=== PATIENT | female | born 1960 | race Caucasian/White ===

== ENCOUNTER → 2017-12-14 11:35 | Outpatient (CLI) | payer OTHER, SELFPAY ==
[2017-12-14 11:46] LABS: Bacteria 0 SEEN /hpf (None Seen); Mucous, Urine 0 SEEN /hpf (<or=2+); Red Blood Cells-Urine 0 SEEN /hpf (0-5)
[2017-12-14 15:50] LABS: Absolute Lymphocyte Count 2.25 X10^3/ul (0.83-4.51); Absolute Neutrophil Count 5.5 X10^3/uL (2.0-7.7); Basophil# 0.02 X10^3/uL; Basophil% 0.2 % (0-1); Eosinophil# 0.08 X10^3/uL; Hematocrit 44.4 % (37-47); Lymphocyte # 2.25 X10^3/ul (4.0); Lymphocyte % 26.7 % (19-41); Mean Corp Hgb Conc 33.8 g/gl (32-36); Mean Corpuscular Hgb 32.5 pg (27.0-32.0); Mean Corpuscular Volume 96.3 fL (81-99); Mean Platelet Vol. 9.3 fl (6.2-12.0); Monocyte# 0.54 X10^3/uL; Monocyte% 6.4 % (0-10); Neutrophil # 5.52 X10^3/uL (2.7-7.7); Neutrophil % 65.6 % (47-70); Platelet Count 318 K/mm3 (150-450); RBC Distribution Width CV 13.6 % (11.6-14.6); RBC Distribution Width SD 47.8 fl (35.1-43.9); Red Blood Count 4.61 M/mm3 (4.2-5.4); White Blood Count 8.4 K/mm3 (4.4-11.0)
[2017-12-14 15:55] LABS: Color, Urine Yellow (Yellow); Glucose, Dipstick Normal (Normal); Ketone-Dipstick Negative (Negative); Leukocyte Esterase-Dipstick Negative /ul (Negative); Nitrite-Dipstick Negative (Negative); Occult Blood-Urine Negative /ul (Negative); Protein-Dipstick Negative (Negative); Urine Bilirubin Dipstick Negative (Negative); Urine Clarity Clear (Clear); Urine Urobilinogen Normal (Normal); Urine pH 6.5 (5.0 - 8.0)
[2017-12-14 16:04] LABS: POSITIVE COUNT NO; POSITIVE DIFFERENTIAL NO; POSITIVE MORPHOLOGY NO
[2017-12-14 16:07] LABS: Squamous Epithelial Cells - UA 0-5 SEEN /hpf (5-10); White Blood Cells 0-5 SEEN /hpf (0-5)
[2017-12-14 16:13] LABS: ALB/GLOB Ratio 0.9 RATIO (0.9-2.4); AST(SGOT) 13 U/L (15-37); Alanine Aminotransfer ALT/SGPT 26 U/L (13-56); Albumin, Serum 3.7 g/dL (3.2-5.0); Alkaline Phosphatase 108 U/L (45-117); Anion Gap 8 (5-15); BUN 8 mg/dL (7-18); BUN/Creat Ratio 11.7 RATIO (10-20); Calcium,Total 9.3 mg/dL (8.5-10.1); Chloride 105 mmol/L (98-107); Creatinine, Serum 0.68 mg/dL (0.55-1.02); EST Glomerular Filtration Rate 94 mL/min (>60); Est Glom Filt Rate - Afr Amer 113 mL/min (>60); Globulin 4.1 g/dL (2.2-4.2); Glucose 108 mg/dL (74-106); Potassium 3.7 mmol/L (3.5-5.1); Protein, Total 7.8 g/dL (6.4-8.2); Sodium Level 138 mmol/L (136-145)
== END ==
PROVIDERS: Family Provider Family Medicine; PCP Family Medicine; Visit Provider Family Medicine
DX: I10 Essential (primary) hypertension (principal); R60.0 Localized edema
CPT/HCPCS: 36415; 80053; 81001; 84443; 85025

== ENCOUNTER → 2020-02-27 11:57 | Outpatient (CLI) | payer OTHER, SELFPAY ==
[2020-02-27 15:29] LABS: Absolute Lymphocyte Count 2.41 X10^3/uL (0.83-4.51); Absolute Neutrophil Count 6.2 X10^3/uL (2.0-7.7); Basophil# 0.06 X10^3/uL; Basophil% 0.6 % (0-1); Eosinophil# 0.09 X10^3/uL; Hematocrit 44.8 % (37-47); Hemoglobin 14.8 g/dL (12.0-15.0); Lymphocyte # 2.41 X10^3/ul (4.0); Lymphocyte % 25.7 % (19-41); Mean Corpuscular Hgb 32.3 pg (27.0-32.0); Mean Corpuscular Volume 97.8 fL (81-99); Mean Platelet Vol. 9.4 fl (6.2-12.0); Monocyte# 0.64 X10^3/uL; Monocyte% 6.8 % (0-10); NRBC Flagged by Analyzer 0 % (0-5); Neutrophil # 6.16 X10^3/uL (2.7-7.7); Neutrophil % 65.7 % (47-70); Platelet Count 327 K/mm3 (150-450); RBC Distribution Width CV 13.2 % (11.6-14.6); RBC Distribution Width SD 47.5 fl (35.1-43.9); Red Blood Count 4.58 M/mm3 (4.2-5.4); White Blood Count 9.4 K/mm3 (4.4-11.0)
[2020-02-27 15:52] LABS: ALB/GLOB Ratio 0.8 RATIO (0.9-2.4); AST(SGOT) 19 U/L (15-37); Alanine Aminotransfer ALT/SGPT 37 U/L (13-56); Albumin, Serum 3.4 g/dL (3.2-5.0); Alkaline Phosphatase 95 U/L (45-117); Anion Gap 8 (5-15); BUN 9 mg/dL (7-18); BUN/Creat Ratio 11.9 RATIO (10-20); Calcium,Total 9.3 mg/dL (8.5-10.1); Chloride 101 mmol/L (98-107); Creatinine, Serum 0.76 mg/dL (0.55-1.02); EST Glomerular Filtration Rate 83 mL/min (>60); Est Glom Filt Rate - Afr Amer 100 mL/min (>60); Free T3 2.9 pg/mL (2.18-3.98); Glucose 100 mg/dL (74-106); Lipase 87 U/L (73-393); Potassium 3.1 mmol/L (3.5-5.1); Protein, Total 7.4 g/dL (6.4-8.2); Sodium Level 139 mmol/L (136-145); T4 Free Direct 1.14 ng/dL (0.76-1.46); Thyroid Stim Hormone (TSH) 0.93 uIU/mL (0.358-3.74)
== END ==
PROVIDERS: PCP Family Medicine; Visit Provider Family Medicine
DX: R10.9 Unspecified abdominal pain (principal); R10.13 Epigastric pain; R14.0 Abdominal distension (gaseous)
CPT/HCPCS: 36415; 80053; 83690; 84439; 84443; 84481; 85025

== ENCOUNTER → 2020-03-21 07:13 | Outpatient (CLI) | payer OTHER, SELFPAY ==
--- NOTE | 2020-03-21 07:20 | CT_ITS ---
STUDY: CT ABDOMEN AND PELVIS WITH CONTRAST REASON FOR EXAM: Female, 59 years old. AB PAIN AND BLOATING X 5 MONTHS. PRIOR APPY,GB, CLARA/BSO RADIATION DOSAGE (If Supplied By Facility): CTDIvol = ( 18.20 ) mGy, DLP = ( 913.17 ) mGycm TECHNIQUE: Transaxial images were obtained from the dome of the diaphragm to the symphysis pubis with oral contrast. Oral and amp; IV Readi-CAT and amp; 100mL Isovue-370 was administered. Sagittal and coronal images were reconstructed. Individualized dose optimization techniques were used for this CT. COMPARISON: None. FINDINGS: Patchy area of increased density in the lingular segment of the left upper lobe. This may represent either a focal area of atelectasis or infiltrate. Calcified granulomas in the posterior medial segment of the right lower lobe as well as bullous formation in the posterior medial segment of the right lower lobe. The visualized portions of the heart are within normal limits. There is decreased attenuation of the liver consistent with steatosis. Multiple scattered hepatic cysts throughout both lobes of the liver. The largest cyst is in the inferior medial portion of the right lobe of the liver and measures 2.8 cm x 2.2 cm. There are surgical clips in the gallbladder fossa consistent with a prior cholecystectomy. Normal spleen. Normal pancreas. Normal bilateral adrenal glands. Normal right kidney. Normal left kidney. Normal visualized stomach. Normal small intestine. Normal colon. The patient is status post appendectomy. There is diffuse atherosclerotic calcification of the abdominal aorta and its major visceral branches, without a demonstrated aneurysm. Normal inferior vena cava. Normal retroperitoneum. Normal urinary bladder. There is absence of the uterus consistent with a prior hysterectomy. There is a small umbilical hernia containing fat. Normal osseous structures. CT/Abdomen/Pelvis WITH Contrast IMPRESSION: Fatty infiltration of the liver. Multiple hepatic cysts. Atelectasis/infiltrate in the lingular segment of the left upper lobe. Scarring and bullous changes in the right lower lobe. Electronically Signed: George Bey, at 8:58 EDT , Service support ,
== END ==
PROVIDERS: PCP Family Medicine; Referring Provider Family Medicine; Visit Provider Family Medicine
DX: R10.13 Epigastric pain (principal); R10.12 Left upper quadrant pain; R14.0 Abdominal distension (gaseous)
CPT/HCPCS: 74177; Q9967

== ENCOUNTER 2021-04-16 18:57 | Emergency (ER) | payer OTHER, SELFPAY ==
[2021-04-16 18:58] VITALS: BP 193/123; PULSE 97; RESP 16; TEMP 36.4; O2SAT 100; BMI 27.3
[2021-04-16 19:47] VITALS: BP 193/120; PULSE 94; RESP 18; O2SAT 98
--- NOTE | 2021-04-16 20:24 | EX.ED.DYSGE1 ---
HPI History of Present Illness Chief Complaint: Other, Pain/Inj Informant: patient Narrative Narrative: Nontraumatic right-sided neck pain rating up to her right side head after leaving [facility] at 10 AM this morning from [place]. Denies pain down the right arm. Ibuprofen taken. Blood pressure is elevated she takes 50 mg of hydrochlorothiazide daily. Denies chest pains or shortness of breath. Denies previous similar symptoms in the past. No history of osteopenia or osteoporosis. Prior similar symptoms: No PFSH PFSH Medical History Hypertension Home Medications alprazolam 0.25 mg PO QHS 04/16/21 [History Last Taken Unknown] atorvastatin 10 mg PO DAILY 04/16/21 [History Last Taken Unknown] diazepam [Valium] 2 mg PO BID PRN #10 tab 04/16/21 [Rx Last Taken Unknown] hydrochlorothiazide 50 mg PO DAILY 04/16/21 [History Last Taken Unknown] Allergy/AdvReac Type Severity Reaction Status Date / Time aspirin Allergy Vomiting Verified 04/16/21 19:00 Surgical History History of appendectomy History of cholecystectomy History of hand surgery History of shoulder surgery History of total hysterectomy Social History Smoking Status: Current every day smoker tobacco type: cigarettes ROS ROS ED Constitutional Constitutional ED: Denies chills, fever(s) or sweats Eyes Eyes: Denies change in vision ENT ENT ED: Denies dysphagia or sore throat Cardiovascular Cardiovascular: Denies chest pain, leg edema, palpitations or racing heartbeat Respiratory/Chest Respiratory/Chest: Denies cough, dyspnea or dyspnea on exertion Gastrointestinal Gastrointestinal: Denies abdominal pain, diarrhea, nausea or vomiting Genitourinary Genitourinary ED: Denies dysuria, hematuria or urinary frequency Musculoskeletal Musculoskeletal: Reports neck pain; Denies back pain or extremity pain Integumentary Denies rash or wounds Neurologic Neurologic: Reports headache(s); Denies paresthesias or weakness EXAM Physical Exam Const Vital Signs: 04/16/21 18:58 04/16/21 19:47 04/16/21 19:49 Temperature 97.5 F L Temperature Source Temporal Pulse Rate 97 94 Respiratory Rate 16 18 Respiratory Effort Normal Non-Labored Respiratory Pattern Normal Blood Pressure 193/123 H 193/120 H Blood Pressure Mean 146 144 Pulse Ox 100 98 Oxygen Delivery Method Room Air Room Air 04/16/21 20:31 Temperature Temperature Source Pulse Rate 86 Respiratory Rate 16 Respiratory Effort Respiratory Pattern Blood Pressure 139/95 H Blood Pressure Mean Pulse Ox 96 Oxygen Delivery Method Positive well nourished and well developed General Appearance ED: well developed and NAD HEENT Reports moist mucous membranes normocephalic and atraumatic Eyes PERRL, EOMs intact bilaterally and conjunctivae normal General Eye ED: Yes normal appearance of both eyes Neck no lymphadenopathy and supple Neck Narrative: Tenderness right paracervical with somatic dysfunction with upper cervical rotated side bent right. No meningismus. General: tenderness Chest Wall Chest: Negative for tenderness Resp normal respiratory effort and normal air movement Effort and Inspection: symmetric chest movement; Negative for respiratory distress Cardio regular rate, regular rhythm and no murmurs Peripheral Pulses: pulses 2+ throughout GI normal to inspection, nondistended, normoactive bowel sounds and non-tender Palpation: Negative for guarding or rebound tenderness present Back/Spine no CVA tenderness and no thoracic nor lumbar tenderness Extremity normal to inspection General Extremety ED: Negative for edema or tenderness General Extremity: Negative for edema Neuro oriented x3, CN's II-XII intact bilaterally and no sensory deficits noted Sensorium / Orientation: awake and alert Skin no rashes or lesions noted and no wounds MDM MDM MDM Narrative Medical decision making narrative: Patient exam concerns for somatic dysfunction right cervical spine causing tension headache on the right side. Afebrile no meningismus. Blood pressure is elevated 193/120 on arrival likely secondary additional pain. Discussed osteopathic manipulation with the patient who agreed. Performed facilitated positional relief of the right cervical spine improved movement and tension. Blood pressure also improved 136/95 after manipulation. Neck pain improved patient still has slight headache. Discussed avoiding NSAIDs at this time due to causing elevated blood pressure. She'll use Tylenol. She started on 2 mg of Valium to use as needed to help additional muscle relaxation control. She will hold her Xanax for which she takes as needed at night while taking Valium. She will follow-up with her PCP. All questions were answered. Discharge Plan Triage Chief Complaint: Other, Pain/Inj ED Provider: Alex Chi Dx/Rx/DC Orders Clinical Impression: Cervical somatic dysfunction, Acute tension-type headache, Elevated blood pressure reading in office with diagnosis of hypertension Instructions: Controlling High Blood Pressure, ED Headache, Tension, ED Neck Pain Prescriptions: New diazepam [Valium] 2 mg tablet 2 mg PO BID PRN (Reason: muscle spasm) Qty: 10 RF: 0 No Action atorvastatin 10 mg tablet 10 mg PO DAILY RF: 0 hydrochlorothiazide 50 mg tablet 50 mg PO DAILY RF: 0 alprazolam 0.25 mg tablet 0.25 mg PO QHS RF: 0 Primary Care Provider: Carine Terrazas Referrals: Carine Terrazas DO [Primary Care Provider] - 3-5 Days if not improving Activity Restrictions/Additional Instructions: Use Tylenol 1 g every 6 hours as needed. Avoid ibuprofen due to possibly causing elevated blood pressure. Status post manipulation cervical spine with improvement of blood pressure. Use Valium as prescribed. Do not use your alprazolam while using Valium. Follow-up with your doctor. Disposition Disposition: Home, Self Care Discharge Date/Time: 04/16/21 20:32
[2021-04-16] MEDS: diazePAM 2 MG Tablet PO (20:29)
[2021-04-16 20:31] VITALS: BP 139/95; PULSE 86; RESP 16; O2SAT 96
== END 2021-04-16 20:32 | disposition home or self-care (01) ==
PROVIDERS: Emergency Provider Emergency Medicine; PCP Family Medicine
DX: M99.01 Segmental and somatic dysfunction of cervical region (principal); G44.209 Tension-type headache, unspecified, not intractable; I10 Essential (primary) hypertension; F17.210 Nicotine dependence, cigarettes, uncomplicated; Z79.899 Other long term (current) drug therapy
CPT/HCPCS: 99283

== ENCOUNTER → 2022-12-06 | Outpatient (CLI) | payer OTHER, SELFPAY ==
--- NOTE | 2022-12-06 13:22 | STEWCON_ITS ---
Reason For Study: Dyspnea Stress Results Protocol: Lars Protocol WITH DEFINITY Maximum Predicted HR: 157 bpm Target HR: 133 bpm % Maximum Predicted HR: 90 % DurationHeart Rate Stage (mm:ss) (bpm) BP Comment Baseline 70 138/74No Chest Pain; Definity 3 ML Given Lars Protocol Stage I 3:00 115 146/70No Chest Pain; Mild Dyspnea Lars Protocol Stage II 3:00 129 172/74No Chest Pain; Moderate Dyspnea Lars Protocol Stage III 0:30 142 / No Chest Pain; Moderate Dyspnea Recovery 85 122/78No Chest Pain; No Dyspnea Stress Duration: 6:30 mm:ss Maximum Stress HR: 142 bpm METS: 8 Baseline Echocardiogram Findings Stress Echo Wall motion Data Resting WM Intermediate WM Stress WM Time Measurements MV dec time: 0.20 sec Doppler Measurements & Calculations MV E max olu: 75.4 cm/sec Lat Peak E' Olu: 9.8 cm/sec Med Peak E' Olu: 7.4 cm/sec MV A max olu: 80.4 cm/sec E/E' lat: 7.7 E/E' med: 10.2 MV E/A: 0.94 MV dec slope: 364.2 cm/sec2 TR max olu: 277.6 cm/sec TR max P.8 mmHg ECHO/Stress Test Echo W/Contrast Interpretation Summary Stress echocardiogram. 62-year-old lady with a history of shortness of breath. Resting EKG demonstrates normal sinus rhythm with a rate of 71 bpm normal inter vals are noted resting blood pressure is 138/74 mmHg. The patient exercised according to regul ar Lars protocol for a total duration of 6 minutes and 30 seconds. The maximum heart rate attained w as 144 bpm which was 91% of max impacted heart rate the maximum workload was 8.5 metabolic equivalen ts. At rest there were no ST or T wave changes noted suggest ischemia and at peak exercise there was less than 1 mm of horizontal and upsloping ST changes noted we did not meet the criteria for isch emia. The patient did experience dyspnea on exertion. The peak blood pressure was 172/74 mmHg which w as a good blood pressure response to exercise rate-pressure product was 22,188. Stress echocardiogram. The resting and stress echocardiographic images were obt ained with the resting images demonstrating an ejection fraction of 65% with Definity enhancem ent. At peak exercise there was near chamber obliteration noted with no wall motion abnormalities pre sent. No evidence of ischemia was present. Conclusion: Normal exercise stress echo with no EKG criteria for ischemia at a moderate wor kload Normal resting echocardiographic images with normal pulmonary pressures of 34 m mHg. No ischemia present. Ordering Physician: Raul Swenson V Referring Physician: Raul Swenson V Performed By: Inés Recio, ANGÉLICA, RVT
== END | disposition home or self-care (01) ==
PROVIDERS: Referring Provider Internal Medicine Pulmonary Disease; Visit Provider Internal Medicine Pulmonary Disease
DX: R06.00 Dyspnea, unspecified (principal)
CPT/HCPCS: 93017; 93350; Q9957; C8928

== ENCOUNTER 2023-11-19 05:24 | Emergency (ER) | payer OTHER, SELFPAY ==
[2023-11-19 05:26] VITALS: BP 217/99; PULSE 98; RESP 20; TEMP 36.7; O2SAT 97; BMI 29.8
--- NOTE | 2023-11-19 05:26 | EKG12_ITS ---
Test Reason : PALPS Blood Pressure : / mmHG Vent. Rate : 085 BPM Atrial Rate : 085 BPM P-R Int : 124 ms QRS Dur : 090 ms QT Int : 366 ms P-R-T Axes : 025 057 054 degrees QTc Int : 435 ms Normal sinus rhythm Nonspecific ST abnormality Abnormal ECG Confirmed by SHARLA BHATT, ESTEVAN ([id number]), wood flooring specialist CHETNA OSBORNE ([id number]) on 11/21/2023 11:46:28 AM Referred By: COLBY Confirmed By:ESTEVAN MAGDALENO MD
--- NOTE | 2023-11-19 05:27 | EX.ED.DYSGE1 ---
HPI History of Present Illness Chief Complaint: Palpitations [facility] Medical History Hypertension Home Medications alprazolam 0.25 mg tablet 0.25 mg PO QHS 04/16/21 [History Last Taken Unknown] atorvastatin 10 mg tablet 10 mg PO DAILY 04/16/21 [History Last Taken Unknown] Allergy/AdvReac Type Severity Reaction Status Date / Time aspirin Allergy Vomiting Verified 04/16/21 19:00 Surgical History History of appendectomy History of cholecystectomy History of hand surgery History of shoulder surgery History of total hysterectomy Social History Smoking Status: Current every day smoker tobacco type: e-cigarettes EXAM Physical Exam Const Vital Signs: 11/19/23 05:26 11/19/23 05:29 11/19/23 05:31 Temperature 98.1 F 98.1 F Temperature Source Oral Oral Pulse Rate 98 90 Respiratory Rate 20 H 19 H Respiratory Effort Normal Blood Pressure 217/99 H 217/99 H Blood Pressure Mean 138 138 Pulse Ox 97 97 Oxygen Delivery Method Room Air Room Air 11/19/23 06:15 Temperature Temperature Source Pulse Rate 85 Respiratory Rate 13 Respiratory Effort Blood Pressure 183/90 H Blood Pressure Mean 121 Pulse Ox 97 Oxygen Delivery Method Room Air MDM MDM MDM Narrative Medical decision making narrative: HISTORY OF PRESENT ILLNESS: 63-year-old female presents with concern for palpitations. She states 2 weeks of watery diarrhea several episodes per day. Recent travel, antibiotics or hospitalization. Denies chest pain or shortness of breath. Notes abdominal pain just prior to going to the bathroom. The patient denies recent surgery in the last 4 weeks or immobilization in the last 3 days, denies previous diagnosis of DVT or PE, hemoptysis, unilateral leg swelling or malignancy with treatment the last 6 months or palliative. No estrogen use noted. REVIEW OF SYSTEMS: Pertinent positives: Palpitations, diarrhea, abdominal pain Pertinent negatives: Shortness of breath, chest pain, urinary complaints PHYSICAL EXAM: Nursing triage notes reviewed, Vital signs reviewed Constitutional: please see mdm HENT: MMM Eyes: Pupils equal round and reactive to light, Extraocular muscles intact Neck: No stridor, no JVD, full neck ROM Lungs: Clear to auscultation, No wheezing or rales. No increased work of breathing, no conversational dyspnea, no accessory muscle use, no nasal flaring. No respiratory distress noted Heart: Regular rate and rhythm, No murmurs, No rubs and No gallops, 2+ distal pulses (radial, femoral, posterior tibial) in all extremities Abdomen: Soft, there is no tenderness, rigidity, rebound or guarding, no obvious peritoneal signs, no palpable pulsatile abdominal masses, no auscultated abdominal bruit : No CVAT Extremities: No edema Neuro: No focal neurological deficits, cranial nerves II through XII intact, 5/5 strength in all extremities. Intact sensation to light touch in all extremities, 2+ reflexes bilateral patella tendons. Normal gait. No ataxia. Skin: No rash or lesions noted MEDICAL DECISION MAKING: Chief Complaint: Palpitations External records reviewed: Reviewed stress echocardiogram from November 2022: Ejection fraction 65% this time, the resting and stress echocardiographic images showed no wall motion abnormalities, no evidence of ischemia Factors affecting care: n hypertension, hyperlipidemia, emphysema Social determinants of health: Former smoker History obtained from others: none Consults: none MDM Narrative: Patient was initially hypertensive otherwise afebrile he was nontoxic-appearing. No focal cardiopulmonary normalities. Abdomen soft, no appreciable tenderness noted. I considered the following differential diagnosis: Dehydration, electrolyte disturbance, GEOVANNI, arrhythmia, myocardial ischemia, invasive diarrhea I obtained a broad lab workup to further elucidate the etiology patient complaint. I rehydrated the patient 1 L normal saline. ALL IMAGES (IF OBTAINED) HAVE BEEN PERSONALLY REVIEWED AND INTERPRETED BY MYSELF. EKG with normal sinus rhythm, normal axis, no intervals, no STEMI, no signs of arrhythmia, WW, ARVD or Brugada syndrome CBC without leukocytosis, severe anemia, no thrombocytopenia. CMP without evidence of acute kidney injury, significant electrolyte abnormality, anion gap, no evidence hepatobiliary pathology. Lipase is wnl indicating no pancreatic inflammation. Repeat abdominal exam remained benign. The synthesis of the patient's history, physical exam, labs suggest no acute life-threatening etiology. While considered acute intra-abdominal pathology such as perforation or obstruction the patient's exam was not consistent with this. No indication for advanced imaging at this time. Patient's palpitations were not present at time of presentation and heart rate was within normal limits her EKG showed no evidence of arrhythmia. She had no chest pain to suggest ACS, no signs of arrhythmia or electrolyte disturbances. Patient is appropriate for discharge home and close PCP follow-up. Stool pathogens were ordered if patient provide sample prior to discharge we will have her follow with her primary care physician to assess results. The patient and/or family, caregivers express understanding. The patient and/or family, caregivers agrees with the plan. Shared decision making: I will have a discussion with the patient and or visitors regarding risk/benefits of further testing or admission. They will be made aware of of the risk/benefits inherent in this decision they will be given the opportunity to voice understanding. Total critical care time today provided was at least 0 minutes. This excludes separately billable procedures. Critical care time (if documented) is secondary to the patient having high probability of clinically significant/life threatening deterioration in the patient's condition which required my urgent intervention. Impression: 1. Dehydration 2. Diarrhea 3. Palpitations Dispo: Discharge This note was generated with [employer] dictation software. It may contain incorrect words, spelling, and punctuation that were not noted in review of the chart prior to signing. Lab Data Labs: Laboratory Results - last 24 hr 11/19/23 05:31 WBC 6.8 RBC 4.13 L Hgb 13.0 Hct 38.2 MCV 92.5 MCH 31.5 MCHC 34.0 RDW Std Deviation 43.5 RDW Coeff of Bar 12.8 Plt Count 267 MPV 8.5 Immature Gran % (Auto) 0.400 Neut % (Auto) 60.4 Lymph % (Auto) 26.4 [place]oshone % (Auto) 10.8 H Eos % (Auto) 1.6 Baso % (Auto) 0.4 Absolute Neuts (auto) 4.1 Absolute Lymphs (auto) 1.79 Nucleated RBC % 0 Sodium 141 Potassium 3.8 Chloride 109 H Carbon Dioxide 27.0 Anion Gap 5 BUN 11 Creatinine 0.81 Estim Creat Clear Calc 68.72 Est GFR (MDRD) Af Amer 91 Est GFR (MDRD) Non-Af 76 BUN/Creatinine Ratio 13.6 Glucose 137 H Calcium 9.2 Total Bilirubin 0.30 AST 30 ALT 52 Alkaline Phosphatase 102 Total Protein 7.1 Albumin 3.2 Globulin 3.9 Albumin/Globulin Ratio 0.8 L Lipase 23 Discharge Plan Triage Chief Complaint: Palpitations ED Provider: Yury Ortiz Dx/Rx/DC Orders Instructions: ED Diarrhea, Unknown Cause, ED Palpitations Prescriptions: No Action atorvastatin 10 mg tablet 10 mg PO DAILY alprazolam 0.25 mg tablet 0.25 mg PO QHS Patient Comments: TAKE 1 TABLET BY MOUTH TWICE DAILY NEEDED Primary Care Provider: Evy Jacob Referrals: Evy Jacob MD [Primary Care Provider] - Activity Restrictions/Additional Instructions: Thank you for trusting us with your care today! Your kidneys, electrolytes and other studies were reassuring. Please drink plenty of fluids. Recommend electrolyte containing solution such as Pedialyte, body armor or Gatorade. Please drink approximately 8 ounces of fluid for every loose or diarrheal bowel movement. If you are able to provide a stool sample please await results via online medical record. Please take Tylenol (2 pills, 650 mg), ibuprofen (2 pills, 400 mg) every 6 hours as needed for pain and fever control. Please return to the emergency department if your symptoms change or worsen. Please follow with your primary care physician for further outpatient evaluation and management. Disposition Disposition: Home, Self Care
[2023-11-19 05:29] VITALS: BP 217/99; PULSE 90; RESP 19; TEMP 36.7; O2SAT 97
[2023-11-19 05:36] LABS: Absolute Lymphocyte Count 1.79 X10^3/uL (0.83-4.51); Absolute Neutrophil Count 4.1 X10^3/uL (2.0-7.7); Basophil# 0.03 X10^3/uL; Basophil% 0.4 % (0-1); Eosinophil# 0.11 X10^3/uL; Eosinophils% 1.6 % (0-5); Hematocrit 38.2 % (37-47); Lymphocyte # 1.79 X10^3/ul (0.83-4.51); Lymphocyte % 26.4 % (19-41); Mean Corpuscular Hgb 31.5 pg (27.0-32.0); Mean Corpuscular Volume 92.5 fL (81-99); Mean Platelet Vol. 8.5 fl (6.2-12.0); Monocyte# 0.73 X10^3/uL; Monocyte% 10.8 % (0-10); NRBC Flagged by Analyzer 0 % (0-5); Neutrophil # 4.08 X10^3/uL (2.7-7.7); Neutrophil % 60.4 % (47-70); Platelet Count 267 K/mm3 (150-450); RBC Distribution Width CV 12.8 % (11.6-14.6); RBC Distribution Width SD 43.5 fl (35.1-43.9); Red Blood Count 4.13 M/mm3 (4.2-5.4); White Blood Count 6.8 K/mm3 (4.4-11.0)
[2023-11-19] MEDS: 0.9% Normal Saline (1000mL) 1,000 ML 1000 ML IV (05:42)
[2023-11-19 06:00] LABS: ALB/GLOB Ratio 0.8 RATIO (0.9-2.4); AST(SGOT) 30 U/L (15-37); Alanine Aminotransfer ALT/SGPT 52 U/L (13-56); Albumin, Serum 3.2 g/dL (3.2-5.0); Alkaline Phosphatase 102 U/L (45-117); Anion Gap 5 (5-15); BUN 11 mg/dL (7-18); BUN/Creat Ratio 13.6 RATIO (10-20); Calcium,Total 9.2 mg/dL (8.5-10.1); Chloride 109 mmol/L (98-107); Creatinine, Serum 0.81 mg/dL (0.55-1.02); EST Glomerular Filtration Rate 76 mL/min (>60); Est Glom Filt Rate - Afr Amer 91 mL/min (>60); Estimated Creatinine Clearance 68.72 ml/min; Globulin 3.9 g/dL (2.2-4.2); Glucose 137 mg/dL (74-106); Lipase 23 U/L (13-75); Potassium 3.8 mmol/L (3.5-5.1); Protein, Total 7.1 g/dL (6.4-8.2); Sodium Level 141 mmol/L (136-145)
[2023-11-19 06:15] VITALS: BP 183/90; PULSE 85; RESP 13; O2SAT 97
[2023-11-19 06:29] VITALS: BP 172/91; PULSE 79; RESP 18; TEMP 36.6; O2SAT 95
[2023-11-19 06:40] VITALS: BP 172/91; PULSE 79; RESP 17; TEMP 36.3; O2SAT 95
== END 2023-11-19 06:45 | disposition home or self-care (01) ==
PROVIDERS: Emergency Provider Emergency Medicine; PCP Student in an Organized Health Care Education/Training Program; Visit Provider Emergency Medicine
DX: R00.2 Palpitations (principal); E86.0 Dehydration; I10 Essential (primary) hypertension; E78.5 Hyperlipidemia, unspecified; Z87.891 Personal history of nicotine dependence; R19.7 Diarrhea, unspecified; Z90.49 Acquired absence of other specified parts of digestive tract; Z90.710 Acquired absence of both cervix and uterus; Z79.899 Other long term (current) drug therapy
CPT/HCPCS: 80053; 83690; 85025; 93005; 96360; 99284; J7030; A4216

== ENCOUNTER → 2024-03-13 | Outpatient (CLI) | payer OTHER, SELFPAY ==
[2024-03-13 18:09] LABS: CRP < 2.90 mg/L (0.0-3.0)
[2024-03-15 17:08] LABS: Endomysial Antibody IgA Negative (Negative); Immunoglobulin A 258 mg/dL (87-352); t-Transglutaminase IgA <2 U/mL (0-3)
== END | disposition home or self-care (01) ==
LOC: MTLAB 13:55
PROVIDERS: PCP Student in an Organized Health Care Education/Training Program; Referring Provider Internal Medicine Gastroenterology; Visit Provider Internal Medicine Gastroenterology
DX: R19.7 Diarrhea, unspecified (principal)
CPT/HCPCS: 36415; 82784; 83516; 86140; 86255

== ENCOUNTER → 2024-07-19 | Outpatient (CLI) | payer MEDICARE, OTHER, SELFPAY ==
[2024-07-19 14:37] LABS: Vitamin D,25 Hydroxy 34.1 ng/mL
== END | disposition home or self-care (01) ==
LOC: LAB 11:28
PROVIDERS: PCP Internal Medicine; Referring Provider Internal Medicine; Visit Provider Internal Medicine
DX: E55.9 Vitamin D deficiency, unspecified (principal); R73.9 Hyperglycemia, unspecified
CPT/HCPCS: 36415; 82306; 83036

== ENCOUNTER → 2024-09-27 | Outpatient (CLI) | payer MEDICARE, SELFPAY ==
--- NOTE | 2024-09-27 14:50 | CT_ITS ---
PROCEDURE: LOW DOSE CT LUNG SCREENING REASON FOR EXAM: HX NICOTINE DEPENDENCE Former smoker. Patient has smoked 15 cigarettes per day for 50 years. TECHNIQUE: Low Dose CT Lung Screening without contrast COMPARISON: None. FINDINGS: PULMONARY NODULES: (Only nodules >6mm are reported) Nodules described below are on series unless otherwise specified. Pulmonary Nodules: No concerning pulmonary nodules. Hardware:None Lymph Nodes:No mediastinal hilar or axillary lymphadenopathy. Heart and Vasculature:Normal heart size. No pericardial effusion.Thoracic aorta and pulmonary arteries have normal contours; noncontrast technique limits evaluation. Coronary Artery Calcifications: Lungs and Airways: The lungs are normally expanded and clear. Pleura:No pleural effusion. No pneumothorax. Upper Abdomen:Visualized portions of the upper abdominal viscera are unremarkable. Bones:Bone windows are unremarkable. CT/Low Dose CT Lung Screening IMPRESSION: 1. BASED ON THE ACR LUNG RADS FOR THE MOST SUSPICIOUS NODULE (IF ANY) DESCRIBE D IN THIS REPORT, THE OVERALL LUNG RADS SCORE IS 1. 1 - NEGATIVE. RECOMMEND 12-MONTH SCREENING LDCT.. 2. SMOKING CESSATION COUNSELING IS RECOMMENDED IF THE PATIENT IS STILL SMOKING . 3. OTHER SIGNIFICANT FINDINGSNone. One or more dose reduction techniques were used (e.g., Automated exposure contr ol, adjustment of the mA and/or kV according to patient size, use of iterative reconstruction technique). The following information is provided for reference:Lung-RADS 202 Assessment C ategories. Additional information involving Lung-RADS is available at www.acr.org. 0-INCOMPLETE 1-NEGATIVE:No nodules or definitely benign nodules. Complete, central, popcorn , or centric ring calcifications OR fat containing 2-BENIGN APPEARANCE (based on imaging features or indolent behavior). Juxtaple ural nodule: < 10mm AND solid; smooth margins; oval, entiform, or triangular shape Solid nodule: <6mm at baseline or new< 4mm Part solid Nodule: < 6mm total mean diameter at baseline Nonsolid nodule:(GGN) < 30mm OR >=30mm stable or slowly growing Airway nodule, subsegmental at baseline, new, or stable Category 3 nodule stabl e or decreased in size at 6-month follow-up CT or Category 3 or 4A nodules that resolve on follow-up OR category 4B findings prov en to be benign following diagnotic work up. 3 - Probably Benign (Based on imaging features or behavior) Solid Nodule: >= 6 to <8mm at baseline OR new 4 to <6mm Part-solid nodule: >= 6mm toal mean diam. with solid component <6mm at baseline OR new < 6mm total mean diam. Non-solid nodule: GGN >= 30mm at baseline or new Atypical pulmonary cyst: Growing cystic component (mean diam.) of thick-walled cyst Category 4A nodule stable or decreased in size at 3-month follow-up CT (excl.ai rway). 4A - Suspicious Solid nodule: >=8 to < 15mm at baseline OR growing < 8mm OR new 6 to < 8mm Part solid nodule: >= 6mm total mean diam. w/ solid component >=6mm to < 8mm at baseline OR new or growing < 4mm solid component Airway nodule, segmental or more proximal at baseline or new Atypical pulmonary cyst: Thick-walled OR multilocular at baseline OR becomes mu ltilocular 4B - Very Suspicious Airway nodule, segmental or more proximal, and stable or growing Solid nodule: >= 15mm at baseline OR new or growing >= 8mm Part solid nodule: Solid component >= 8mm OR new or growing >= 4mm solid compon ent Atypical pulmonary cyst: Thick-walled with growing wall thickness/nodularity OR Growing multilocular (mean diam.) OR Multilocular with increased loculation or new/increased opacity Slow-growing solid or part solid nodule w/ growth over multiple screening exams 4X - Very Suspicious Category 3 or 4 nodules with additional features that increase the suspicion fo r lung cancer. S - Clinically Significant or potentially significant findings (non-lung cancer ) Reading Location: [place] [id number]
== END | disposition home or self-care (01) ==
LOC: CT 14:45
PROVIDERS: PCP Internal Medicine; Referring Provider Internal Medicine Pulmonary Disease; Visit Provider Internal Medicine Pulmonary Disease
DX: Z87.891 Personal history of nicotine dependence (principal)
CPT/HCPCS: 71271

== ENCOUNTER → 2025-03-21 | Outpatient (CLI) | payer MEDICARE, SELFPAY ==
--- NOTE | 2025-03-21 17:00 | CT_ITS ---
PROCEDURE: CHEST WITHOUT CONTRAST 03/21/2025 REASON FOR EXAM: ABN FINDING OF LUNG FIELD TECHNIQUE: Chest CT without contrast. Coronal and Sagittal reconstruction series were provided. One or more dose reduction techniques were used (e.g., Automated exposure control, adjustment of the mA and/or kV according to patient size, use of iterative reconstruction technique RADIATION DOSE SUMMARY: CTDlvol: 9.8 mGy DLP: 315 mGycm COMPARISON: September 2024. FINDINGS: Thyroid gland: Negative. Lungs: Moderate emphysematous changes. Atelectasis in the left lung base. [place] shape opacity in the right lower lobe measures 1.2 cm. Image 85 stable. [place] shape opacity favor atelectasis right lower lobe slightly worse. Airspace disease in the left lower lobe. No new pulmonary nodules or masses. Pleura: Negative for pleural effusion or pneumothorax. Airways: Imaged bronchi and trachea negative. Mediastinum: Negative for mediastinal mass. Lymph nodes: Negative for axillary, mediastinal or hilar adenopathy. Heart and Vasculature: Heart normal size. Moderate vascular calcifications of the thoracic aorta. Coronary Artery Calcifications: Severe vascular calcifications of the coronary arteries Upper Abdomen: Numerous hepatic cysts. Hardware: None. Bones: Age-appropriate degenerative changes of the thoracic spine. CT/Chest without Contrast IMPRESSION: Nodule right lower lobe stable. Opacity right lower lobe slightly worse. Favor atelectasis. Recommend repeat CT in 3-6 months to confirm improvement. Hepatic cysts. Reading Location: [id number]
== END | disposition home or self-care (01) ==
LOC: CT 16:57
PROVIDERS: PCP Internal Medicine; Referring Provider Internal Medicine Pulmonary Disease; Visit Provider Internal Medicine Pulmonary Disease
DX: R91.8 Other nonspecific abnormal finding of lung field (principal)
CPT/HCPCS: 71250